=== PATIENT | male | born 1960 | race Caucasian/White ===

== ENCOUNTER 2017-01-08 09:45 | Emergency (ER) | payer OTHER ==
[2017-01-08 10:07] VITALS: BP 143/92; PULSE 62; TEMP 98; BMI 24.5
[2017-01-08] MEDS ORDERED: DIPHTH,PERTUSS(ACELL),TET 0.5 ML DISP.SYRIN IM ONE (10:07)
--- NOTE | 2017-01-08 10:10 | PDOC ---
History of Present Illness - General Chief Complaint: Injury Stated Complaint: LEFT MIDDLE FINGER TIP AVULSION Time Seen by Provider: 01/08/17 10:01 - History of Present Illness Initial Comments: 01/08/17 10:43 Chief complaint: Finger injury History of present illness: Patient sliced the tip of his finger while at work. Bleeding at the site. Skin fragment completely avulsed Review of systems: Admits bleeding. Denies numbness tingling or pain at the site Past medical history: MS. No diabetes or cardiac disease Social/family history reviewed and noncontributory Physical exam: Alert and oriented well-developed well-nourished no acute distress cheerful and cooperative Left third finger with 5 mm avulsion of the distal pulp, consisting of thin layer of skin. No deep tissue involvement. Bone is well covered. No swelling or sign of bony injury. Full range of motion and no tenderness at the DIP joint. Capillary refill intact Impression: Minor skin avulsion Plan: Scrubbed with normal saline, dried, bacitracin, Xeroform nonstick dressing , tube gauze. Wound care instructions and follow-up as necessary. Past History - Past Medical History Allergies/Adverse Reactions: Allergies Allergy/AdvReac Type Severity Reaction Status Date / Time No Known Allergies Allergy Verified 01/08/17 09:53 Home Medications: Ambulatory Orders Cetirizine HCl [Zyrtec -] 10 mg PO DAILY PRN 01/08/17 Cholecalciferol (Vitamin D3) [Vitamin D3] 2,000 unit PO DAILY 01/08/17 Cyanocobalamin (Vitamin B-12) [B-12] 5,000 mcg PO DAILY 01/08/17 Naproxen Sodium [Aleve] 220 mg PO ASDIR 01/08/17 Peginterferon Beta-1A [Plegridy] 125 mcg SQ ASDIR 01/08/17 Vitamin E 01/08/17 *DC/Admit/Observation/Transfer Diagnosis at time of Disposition: Avulsion of skin of finger Qualifiers: Encounter type: initial encounter Qualified Code(s): S61.209A - Unspecified open wound of unspecified finger without damage to nail, initial encounter - Discharge Dispostion Disposition: HOME Condition at time of disposition: Improved Admit: No - Referrals Referrals: Toney Arzate [Primary Care Provider] - 3 days - Patient Instructions Printed Discharge Instructions: DI for Avulsion Laceration (Not Requiring Sutures) Additional Instructions: Keep clean and dry. Wound care as directed. Keep moist with antibiotic ointment at all time. Recheck if bleeding or sign of infection. - Post Discharge Activity Work/School Note: Back to Work
== END 2017-01-08 10:37 | disposition home or self-care (01) ==
LOC: SUPCPDRO 09:45 → FER 09:45
PROC: 3E0234Z Introduction of Serum, Toxoid and Vaccine into Muscle, Percutaneous Approach (ICD-10-PCS; principal; 2017-01-08)
DX: S61.213A Laceration without foreign body of left middle finger without damage to nail, initial encounter (principal); W45.8XXA Other foreign body or object entering through skin, initial encounter; Y93.9 Activity, unspecified; Y92.9 Unspecified place or not applicable; Y99.0 Civilian activity done for income or pay
CPT/HCPCS: 90715; 99282-25